=== PATIENT | female | born 1940 | race Caucasian/White ===

== ENCOUNTER → 2017-08-02 | Outpatient (CLI) | payer MEDICARE ==
[2017-08-02 08:18] LABS: ANION GAP 7 (6-14); BLOOD UREA NITROGEN 19 mg/dL (7-20); CALCIUM 8.4 mg/dL (8.5-10.1); CARBON DIOXIDE 28 mmol/L (21-32); CHLORIDE 104 mmol/L (98-107); CREATININE 0.9 mg/dL (0.6-1.0); GFR 60.9; GLUCOSE 95 mg/dL (70-99); POTASSIUM 3.4 mmol/L (3.5-5.1); SODIUM 139 mmol/L (136-145)
[2017-08-02] MEDS: IOHEXOL 240 MG/ML 50ML VIAL. PO (10:03)
[2017-08-02] MEDS: IOHEXOL 300 MG/ML 100ML VIAL. IV (10:03)
== END | disposition home or self-care (01) ==
LOC: CT 09:17
DX: K42.9 Umbilical hernia without obstruction or gangrene (principal); K57.30 Diverticulosis of large intestine without perforation or abscess without bleeding; M43.17 Spondylolisthesis, lumbosacral region
CPT/HCPCS: 36415; 74177; 80048; Q9966; Q9967

== ENCOUNTER 2021-07-21 05:54 | Day surgery (SDC) | payer MEDICARE, BC ==
[~2021-07-21] VITALS: Ht 162.6 cm; Wt 91.8 kg
[~2021-07-21 05:54] MED LIST: ALBU0.63 NEB; AMLO-186 PO; CHOL5000 PO; GLUC1TAB69 PO; LEVO75TA5 PO; MAGN250T10 PO; MONT10TA49 PO
[2021-07-21] MEDS ORDERED: IV RINGERS,LACTATED 1000ML 1,000 ML IV SCH (06:00)
[2021-07-21] MEDS ORDERED: CLINDAMYCIN 900MG PREMIX 50 ML IV PRN (06:00)
[2021-07-21] MEDS ORDERED: HYDROmorphone 2 MG/ML INJ. IVP PRN (06:00)
[2021-07-21] MEDS ORDERED: PROCHLORPERAZINE 10 MG/2 ML VIAL. IVP PRN (06:00)
[2021-07-21] MEDS ORDERED: MORPHINE SULFATE 2 MG/ML INJ. IVP PRN (06:00)
[2021-07-21] MEDS ORDERED: fentaNYL PF VIAL 100 MCG/2 ML VIAL IVP PRN (06:00)
[2021-07-21 06:24] VITALS: BP 198/88
[2021-07-21] MEDS ORDERED: PROPOFOL 50 ML IV ONE (06:49)
[2021-07-21] MEDS ORDERED: ONDANSETRON PF 4 MG/2 ML VIAL. ONE (06:49)
[2021-07-21] MEDS ORDERED: LIDOCAINE 2% PF 5 ML VIAL. ONE (06:49)
[2021-07-21] MEDS ORDERED: DEXAMETHASONE SOD PHOS 4 MG/ML VIAL ONE ×2 (06:49→06:59)
[2021-07-21] MEDS ORDERED: SEVOFLURANE 61 TO 120 MINUTES. IH ONE (06:49)
[2021-07-21] MEDS ORDERED: SUCCINYLCHOLINE 200 MG/10 ML VIAL. ONE (06:50)
[2021-07-21] MEDS ORDERED: fentaNYL PF VIAL 100 MCG/2 ML VIAL ONE ×2 (06:50→08:57)
[2021-07-21] MEDS ORDERED: MIDAZOLAM HCL/PF 2 MG/2 ML VIAL. ONE (06:58)
[2021-07-21] MEDS ORDERED: ROPIVacaine 0.5% PF 20 ML VIAL. ONE (06:59)
[2021-07-21] MEDS ORDERED: LIDOCAINE 1% PF 2 ML VIAL. ONE (07:06)
[2021-07-21] MEDS ORDERED: EPINEPHrine VIAL 30 MG/30 ML VIAL ONE (07:06)
[2021-07-21] MEDS ORDERED: ROCURONIUM 50 MG/5 ML VIAL. ONE (07:30)
[2021-07-21] MEDS ORDERED: ALBUTEROL SULFATE 8GM INHALER. INH ONE (07:31)
[2021-07-21] MEDS ORDERED: HYDR-2759 PO (07:31)
--- NOTE | 2021-07-21 07:34 | DISCH ---
DISCHARGE INSTRUCTIONS Condition on Discharge Condition on Discharge: Stable Activity After Discharge Activity Instructions for Disc: Avoid exertion Driving Instructions after Dis: Do not drive today, No driving for 2 weeks Wound Incision Care Wound/Incision Care: Ice to area for comfort, Change dressing Other wound/incision instructi: She may change dressings postoperative day #3 Follow-Up Follow up with: 10 to 14 days Treatment/Equipment after DC Adaptive Equipment Issued: Brace/splint MEAGHAN CHRISTIANSON Jr. DO Jul 21, 2021 07:34
[2021-07-21] MEDS ORDERED: PHENYLEPHRINE 10 MG/ML VIAL. ONE (08:08)
[2021-07-21] MEDS ORDERED: PROPOFOL 10 MG/ML (20ML) VIAL. IV ONE (08:08)
[2021-07-21] MEDS ORDERED: KETAMINE HCL IN NACL, ISO-OSM 50 MG/5 ML SYRINGE ONE (08:12)
[2021-07-21] MEDS ORDERED: GLYCOPYRROLATE 1 MG/5 ML VIAL. ONE (08:13)
[2021-07-21] MEDS ORDERED: NEOSTIGMINE METHYLSULFATE 5 MG/5 ML SYRINGE. ONE (08:13)
--- NOTE | 2021-07-21 08:35 | PDOC4 ---
OPERATIVE NOTE Date: Date: Jul 21, 2021 Pre-Op Diagnosis: 1. 80-year-old female right glenohumeral arthritis 2. AC joint arthritis 3. Impingement syndrome right shoulder Post-Op Diagnosis: Same Procedure Performed: 1. Right shoulder arthroscopy 2. Subacromial decompression 3. Distal clavicle excision 4. Chondroplasty 5. Debridement glenohumeral arthritis Surgeon: Piero Anesthesia Type: General Blood Loss: 20 cc Specimans Obtained: None Complications: Patient tolerated procedure well without any apparent complications. Operative Note: See dictation ROSANNE BLAS Jul 21, 2021 08:35
[2021-07-21] MEDS ORDERED: ALBUTEROL SULFATE 2.5 MG/3 ML NEBU. ONE (08:45)
[2021-07-21] MEDS ORDERED: SUGAMMADEX SODIUM 200 MG/2 ML VIAL. IVP ONE (08:45)
[2021-07-21] MEDS: fentaNYL PF VIAL 100 MCG/2 ML VIAL IVP PRN ×2 (09:01→09:13)
[2021-07-21] MEDS ORDERED: ALBUTEROL SULFATE 2.5 MG/3 ML NEBU. NEB ONE (09:15)
[2021-07-21] MEDS ORDERED: HYDROcodone/APAP 5/325MG 1 TAB TABLET ONE (09:28)
[2021-07-21] MEDS ORDERED: MORPHINE SULFATE 2 MG/ML INJ. ONE (09:28)
[2021-07-21] MEDS ORDERED: HYDROcodone/APAP 5/325MG 1 TAB TABLET PO ONE (09:30)
[2021-07-21 09:51] VITALS: BP 151/71
--- NOTE | 2021-07-21 13:21 | OP ---
DATE OF SURGERY: 07/21/2021 PREOPERATIVE DIAGNOSES: Impingement, acromioclavicular arthrosis, possible rotator cuff tear, glenohumeral arthrosis, right shoulder. PROCEDURE: Right shoulder arthroscopy with subacromial decompression, distal clavicle resection, chondroplasty of glenoid, bursectomy, release of CA ligament. SURGEON: Crispin Harry Jr, DO [employer]: MATIAS Bueno ANESTHESIA: General. COMPLICATIONS: None. ESTIMATED BLOOD LOSS: 20 mL. DESCRIPTION OF PROCEDURE: The patient was taken to the operative suite, given a general anesthetic, placed in a beach chair position. The right shoulder was then prepped and draped in a sterile fashion. Standard posterior portal was established. Glenohumeral joint was visualized. There were noted to be severe grade 4 changes of the humeral head throughout rotation. There was damage to the glenoid, grade 3 to grade 4. Debridement was undertaken of these regions. There was bone exposed on both sides of the joint. Chronic tear of the biceps tendon was noted at that point and the undersurface of the cuff was significantly frayed, but no obvious tearing at this point. Scope was then taken into the subacromial region where there was noted to be osteophytes anteriorly and laterally; therefore, subacromial decompression was performed. Release of the CA ligament was done at the same time. There were severe changes of the distal clavicle as far as arthritis is concerned, 1.8 cm of the distal clavicle was resected. After this was completely resected and the undersurface bone spur was removed, this was noted to be decompressed and a bursectomy was completed. Following this, changing over from the bur to the shaver. There was some fraying of the entire rotator cuff, but there was no through and through tears. There was no full or near full-thickness tear or deep partial-thickness tears were noted at that point. Though again, it was just fraying. Therefore, after this was reinspected, no other abnormalities were noted. The wounds were reapproximated in an interrupted fashion using 3-0 nylon. Sterile dressing was applied. The patient was then taken from the operative bed to the postoperative bed, taken to the PACU in stable condition. GISELLA/SAURABH/ROSIE DR: Manuel TID: [id number]
== END 2021-07-21 10:22 | disposition home or self-care (01) ==
LOC: SURG 05:54 → MERGE 07:30 → SURG 10:22
PROVIDERS: ATTEND Orthopaedic Surgery
DX: M75.101 Unspecified rotator cuff tear or rupture of right shoulder, not specified as traumatic (principal); M19.011 Primary osteoarthritis, right shoulder; I10 Essential (primary) hypertension; E03.9 Hypothyroidism, unspecified; Z85.828 Personal history of other malignant neoplasm of skin; Z79.899 Other long term (current) drug therapy; Z98.890 Other specified postprocedural states; Z90.710 Acquired absence of both cervix and uterus; Z88.0 Allergy status to penicillin; Z72.89 Other problems related to lifestyle
CPT/HCPCS: 29822; 29824; 29826; A4565; A4930; J0171; J0330; J1100; J2250; J2270; J2370; J2405; J2704; J2710; J2795; J3010; J3490; J7613; A4452